=== PATIENT | male | born 1985 | race Caucasian/White ===

== ENCOUNTER → 2020-07-10 10:31 | Outpatient (CLI) | payer BC, SELFPAY ==
--- NOTE | ~2020-07-10 | XR_ITS ---
XR chest 2V DATE: 07/10/2020 10:48 INDICATION: Ex-two pack per day smoker TECHNIQUE: PA and lateral views COMPARISON: None FINDINGS: Normal heart size. No hilar or mediastinal enlargement. No pulmonary infiltrate or consolidation, pleural effusion or pulmonary vascular congestion or pneumo thorax. IMPRESSION: No active cardiopulmonary disease Reviewed, dictated and finalized at location A.
== END ==
PROVIDERS: PCP Family Medicine; Visit Provider Family Medicine
DX: F17.200 Nicotine dependence, unspecified, uncomplicated (principal)
CPT/HCPCS: 71046

== ENCOUNTER 2020-09-18 14:51 | Outpatient (CLI) | payer BC, SELFPAY ==
[2020-09-18 17:06] LABS: Add Urine Microscopic? YES; Appearance Urine Clear (Clear); Bacteria Urine Trace /hpf; Bilirubin Urine Negative (Negative); Blood Urine Negative (Negative); Calcium Oxalate Crystals Urine Present /hpf; Color Urine Yellow (Yellow); Glucose Urine UA Negative (Negative); Ketones Urine Negative (Negative); Leukocyte Esterase Ur Negative LEU/UL (Negative); Mucus Urine Rare /lpf; Nitrate Urine Negative (Negative); Protein Urine Negative (Negative); RBC Urine 0-2 /hpf (0-2); Specific Grav Ur 1.026 (1.001-1.035); Squamous Epithelial Cell Urine Occasional /hpf (Few); WBC Urine 0-3 /hpf
[2020-09-18 17:24] LABS: Vitamin D 25 Hydroxy 40.2 ng/mL
[2020-09-18 17:52] LABS: Prostate Specific Antigen 1.6 ng/mL (< OR = 4.0)
[2020-09-18 20:54] LABS: Folic Acid 8.8 ng/mL (2.76->20)
[2020-09-21 02:41] LABS: Sex Hormone Binding Globulin 30 nmol/L (10-50)
[2020-09-22 11:19] LABS: T3 Reverse 8 ng/dL (8-25)
[2020-09-23 13:46] LABS: Triiodothyronine T3 Free 3.4 pg/mL (2.3-4.2)
== END 2020-09-18 14:52 | disposition home or self-care (01) ==
LOC: ANHBWCLAB 14:56
PROVIDERS: PCP Family Medicine; Visit Provider Family Medicine
DX: E03.9 Hypothyroidism, unspecified (principal); E29.1 Testicular hypofunction; E66.9 Obesity, unspecified; F17.200 Nicotine dependence, unspecified, uncomplicated; Z79.899 Other long term (current) drug therapy; Z82.62 Family history of osteoporosis; I10 Essential (primary) hypertension
CPT/HCPCS: 36415; 81001; 82306; 82607; 82746; 84153; 84270; 84443; 84481; 84482; 86769; G0103

== ENCOUNTER 2021-04-22 09:56 | Outpatient (CLI) | payer BC, SELFPAY ==
[2021-04-22 19:37] LABS: Add Urine Microscopic? NO; Appearance Urine Clear (Clear); Bilirubin Urine Negative (Negative); Blood Urine Negative (Negative); Color Urine Yellow (Yellow); Glucose Urine UA Negative (Negative); Ketones Urine Negative (Negative); Leukocyte Esterase Ur Negative LEU/UL (NEGATIVE); Nitrate Urine Negative (Negative); Protein Urine Negative (Negative); Specific Grav Ur 1.017 (1.001-1.035); Urobilinogen Urine Negative mg/dL (<2.0)
== END 2021-04-22 09:57 | disposition home or self-care (01) ==
LOC: ANHBWCLAB 09:58
PROVIDERS: PCP Family Medicine; Visit Provider Family Medicine
DX: M54.9 Dorsalgia, unspecified (principal)
CPT/HCPCS: 81003

== ENCOUNTER 2022-10-13 09:49 | Outpatient (CLI) | payer BC, SELFPAY ==
[2022-10-13 18:14] LABS: Alanine Aminotransferase 46 U/L (6-50); Albumin Level 4.2 g/dL (3.5-5.1); Alkaline Phosphatase 73 U/L (38-126); Anion Gap 7 mmol/L (8-16); Aspartate Amino Transferase 52 U/L (17-59); Bilirubin,Total 1.8 mg/dL (0.2-1.3); Blood Urea Nitrogen 7 mg/dL (9-20); Calcium 8.6 mg/dL (8.4-10.2); Carbon Dioxide 27 mmol/L (22-30); Chloride 102 mmol/L (98-107); Cholesterol 93 mg/dL (0-200); Estimated Glomerular Filt Rate > 60; Glucose 79 mg/dL (65-110); HDL Direct 26 mg/dL; Potassium 3.3 mmol/L (3.4-5.0); Sodium 136 mmol/L (137-145); Triglycerides 126 mg/dL (<150)
[2022-10-13 18:25] LABS: LDL Cholesterol Direct 44 mg/dL
[2022-10-13 19:06] LABS: Basophils Absolute Auto 0.1 K/mm3 (0.0-0.1); Eosinophils Absolute Auto 0.2 K/mm3 (0-0.3); Eosinophils Percent Auto 2.4 % (0-4.4); Hematocrit 33.8 % (42.0-52.0); Hemoglobin 11.6 g/dL (14.0-18.0); Immature Granulocyte Absolute 0.24 K/mm3 (0.00-0.031); Immature Granulocyte Percent A 3.1 % (0-0.5); Lymphocytes Absolute Auto 2.14 K/mm3 (0.9-3.2); Lymphocytes Percent Auto 27.3 % (18.3-44.2); Mean Corpuscular HGB Conc 34.3 g/dl (32-36); Mean Corpuscular Hemoglobin 30.5 pg (26-34); Mean Corpuscular Volume 88.9 fl (80-100); Mean Platelet Volume 8.5 fl (7.4-10.4); Monocytes Absolute Auto 0.4 K/mm3 (0.1-0.6); Monocytes Percent Auto 4.7 % (2.6-8.5); Neutrophils Absolute Auto 4.8 K/mm3 (1.3-6.7); Neutrophils Percent Auto 61.5 % (45.5-73.1); Nucleated Red Blood Cells Perc 0.4 % (0.0-0.2); Platelet Count Result 237 k/mm3 (150-375); Red Cell Distribution Width 20.9 % (11.5-14.5); White Blood Count 7.9 K/mm3 (4.5-10.0)
== END 2022-10-13 09:50 | disposition home or self-care (01) ==
PROVIDERS: PCP Family Medicine; Visit Provider Family Medicine
DX: N46.9 Male infertility, unspecified (principal); M54.9 Dorsalgia, unspecified; R68.82 Decreased libido; E03.9 Hypothyroidism, unspecified; E66.9 Obesity, unspecified; F17.200 Nicotine dependence, unspecified, uncomplicated; Z68.43 Body mass index [BMI] 50.0-59.9, adult
CPT/HCPCS: 36415; 80053; 80061; 83036; 84443; 85025

== ENCOUNTER 2022-11-24 10:37 | Outpatient (CLI) | payer BC, SELFPAY ==
[2022-11-24 18:58] LABS: Anion Gap 4 mmol/L (8-16); Blood Urea Nitrogen 10 mg/dL (9-20); Calcium 8.8 mg/dL (8.4-10.2); Carbon Dioxide 28 mmol/L (22-30); Chloride 105 mmol/L (98-107); Estimated Glomerular Filt Rate > 60; Glucose 83 mg/dL (65-110); Iron 99 ug/dL (49-181); Potassium 3.7 mmol/L (3.4-5.0); Sodium 137 mmol/L (137-145)
[2022-11-24 19:05] LABS: Basophils Absolute Auto 0.1 K/mm3 (0.0-0.1); Basophils Percent Auto 1.2 % (0.2-1.2); Eosinophils Absolute Auto 0.2 K/mm3 (0-0.3); Eosinophils Percent Auto 2.6 % (0-4.4); Hematocrit 38.7 % (42.0-52.0); Hemoglobin 13.3 g/dL (14.0-18.0); Immature Granulocyte Absolute 0.09 K/mm3 (0.00-0.031); Immature Granulocyte Percent A 1.3 % (0-0.5); Lymphocytes Absolute Auto 1.72 K/mm3 (0.9-3.2); Lymphocytes Percent Auto 25.1 % (18.3-44.2); Mean Corpuscular HGB Conc 34.4 g/dl (32-36); Mean Corpuscular Hemoglobin 31.4 pg (26-34); Mean Corpuscular Volume 91.5 fl (80-100); Mean Platelet Volume 8.6 fl (7.4-10.4); Monocytes Absolute Auto 0.5 K/mm3 (0.1-0.6); Monocytes Percent Auto 6.7 % (2.6-8.5); Neutrophils Absolute Auto 4.3 K/mm3 (1.3-6.7); Neutrophils Percent Auto 63.1 % (45.5-73.1); Platelet Count Result 231 k/mm3 (150-375); Red Blood Count 4.23 M/mm3 (4.6-6.20); Red Cell Distribution Width 20.7 % (11.5-14.5); White Blood Count 6.9 K/mm3 (4.5-10.0)
[2022-11-24 19:12] LABS: Percent Iron Saturation 31 % (20-50)
[2022-11-24 19:18] LABS: Hemoglobin A1C < 4.0 % (<5.7)
== END 2022-11-24 10:38 | disposition home or self-care (01) ==
PROVIDERS: PCP Family Medicine; Visit Provider Family Medicine
DX: D64.9 Anemia, unspecified (principal); E87.6 Hypokalemia; E03.9 Hypothyroidism, unspecified; E66.9 Obesity, unspecified
CPT/HCPCS: 36415; 80048; 83036; 83540; 83550; 85025

== ENCOUNTER 2023-09-29 14:51 | Outpatient (CLI) | payer BC, SELFPAY | END 2023-09-29 14:52 | disposition home or self-care (01) | LOC: ANHBWCLAB 14:53 | PROVIDERS: PCP Nurse Practitioner Adult Health; Visit Provider Nurse Practitioner Adult Health | DX: E03.9 Hypothyroidism, unspecified (principal) | CPT/HCPCS: 36415; 84443 ==

== ENCOUNTER 2024-09-11 09:00 | Outpatient (CLI) | payer BC, SELFPAY ==
[2024-09-11 20:39] LABS: Alanine Aminotransferase 47 U/L (6-50); Albumin Level 4.4 g/dL (3.5-5.1); Alkaline Phosphatase 66 U/L (38-126); Anion Gap 8 mmol/L (4-12); Aspartate Amino Transferase 50 U/L (17-59); Blood Urea Nitrogen 13 mg/dL (9-20); Calcium 9.1 mg/dL (8.4-10.2); Carbon Dioxide 28 mmol/L (22-30); Chloride 103 mmol/L (98-107); Estimated Glomerular Filt Rate > 60; Glucose 94 mg/dL (65-110); Hematocrit 36.1 % (42.0-52.0); Hemoglobin 12.1 g/dL (14.0-18.0); Mean Corpuscular HGB Conc 33.5 g/dl (32-36); Mean Corpuscular Hemoglobin 30.9 pg (26-34); Mean Corpuscular Volume 92.3 fl (80-100); Mean Platelet Volume 8.7 fl (7.4-10.4); Platelet Count Result 237 k/mm3 (150-375); Potassium 4.2 mmol/L (3.4-5.0); Red Blood Count 3.91 M/mm3 (4.6-6.20); Red Cell Distribution Width 20.5 % (11.5-14.5); Sodium 139 mmol/L (137-145); White Blood Count 8.2 K/mm3 (4.5-10.0)
== END 2024-09-11 09:01 | disposition home or self-care (01) ==
PROVIDERS: PCP Nurse Practitioner Adult Health; Visit Provider Nurse Practitioner Adult Health
DX: E53.8 Deficiency of other specified B group vitamins (principal); E03.9 Hypothyroidism, unspecified; D64.9 Anemia, unspecified
CPT/HCPCS: 36415; 80053; 82607; 84443; 85027

== ENCOUNTER 2024-09-18 09:47 | Outpatient (CLI) | payer BC, SELFPAY ==
[2024-09-18 20:59] LABS: Iron 75 ug/dL (49-181)
[2024-09-18 21:08] LABS: Percent Iron Saturation 24 % (20-50)
== END 2024-09-18 09:48 | disposition home or self-care (01) ==
LOC: ANHBWCLAB 09:49
PROVIDERS: PCP Nurse Practitioner Adult Health; Visit Provider Nurse Practitioner Adult Health
DX: D64.9 Anemia, unspecified (principal); E03.9 Hypothyroidism, unspecified
CPT/HCPCS: 36415; 82728; 83540; 83550

== ENCOUNTER 2024-11-09 17:00 | Outpatient (NON) | payer BC, SELFPAY ==
--- OUTSIDE RECORDS SUMMARY | 2024-11-10 09:50 | XMS_ITS | Clinical Summary ---
Author Organization [facility] Address [address] [place] [address] Care Team Providers Care Centrifugal Chiller Technician Name Role Phone Telma Sheth NP Primary Care Provider Allergies Active Allergy Reactions Criticality Noted Date Comments Azithromycin Hives Medium 04/01/2023 Medications amLODIPine-benaz epriL (LOTREL) 5-40 mg per capsule 03/04/2023 Active Clomid 50 mg tablet TAKE 1/2 TABLET BY MOUTH EVERY OTHER DAY 03/02/2023 Active Active Problems No known active problems Encounters Date Type Department Care Team Description 09/07/2024 8:46 PM COMPRESSOR ENGINEER - 09/07/2024 11:19 PM COMPRESSOR ENGINEER [facility] Emergency Department [address] [place] [address] April Bob MD Lightheadedness (Primary Dx) Discharge Disposition: Discharge to home or self care from Last 3 Months Social History Tobacco Use Types Packs/Day Years Used Date Smoking Tobacco: Former Cigarettes 1.5 20.1 S tarted: 2005 Smokeless Tobacco: Never Tobacco Cessation:Counseling Given: Yes Personal Safety Answer Date Recorded Have you ever been in or are you currently in a harmful physical or emotional relationship or is someone making you feel afraid or unsafe? Denies 09/07/2024 Sex and Gender Information Value Date Recorded Sex Assigned at Not on file Legal Sex Male 5:33 AM COMPRESSOR ENGINEER Gender Identity Not on file Sexual Orientation Not on file Obstetrics History Last Filed Vital Signs Vital Sign Reading Time Taken Comments Blood Pressure 135/58 09/07/2024 10:59 PM COMPRESSOR ENGINEER Pulse 81 09/07/2024 10:59 PM COMPRESSOR ENGINEER Temperature 37.3 C (99.2 F) 09/07/2024 6:42 PM COMPRESSOR ENGINEER Respiratory Rate 13 09/07/2024 10:59 PM COMPRESSOR ENGINEER Oxygen Saturation 99% 09/07/2024 10:59 PM COMPRESSOR ENGINEER Inhaled Oxygen Concentration - - Weight 170.1 kg (375 lb) 01/30/2024 8:34 AM CDT Height 177.8 cm (5' 10 ) 01/30/2024 8:34 AM CDT Body Mass Index 53.81 01/30/2024 8:34 AM CDT Plan of Treatment Health Maintenance Due Date Last Done Comments Depression Screening 1986 Hepatitis C Screening 1986 Varicella Vaccines (1 of 2 - 13+ 2-dose series) 1999 Hepatitis B Screening 2004 Regular Well Visit/Exam 18-64 2004 Covid-19 Vaccine (3 - 2023-2 5 season) 2024 06/17/2021, 05/20/2021 Influenza Vaccine (#1) 2024 DTaP/Tdap/Td Vaccine (3 - Td or Tdap) 01/30/2032 01/29/2022, 08/27/2013 HPV Vaccines Aged Out No longer eligi ble based on patient's age to complete this topic Pneumococcal vaccine <65 Aged Out No longer eligible based on patient's age to complete this topic Procedures Procedure Name Priority Date/Time Associated Diagnosis Comments EGFR STAT 09/07/2024 8:57 PM COMPRESSOR ENGINEER DIFFERENTIAL AUTO STAT 09/07/2024 8:5 7 PM COMPRESSOR ENGINEER COMPREHENSIVE METABOLIC PANEL STAT 09/07/2024 8:57 PM COMPRESSOR ENGINEER CBC WITH AUTO DIFFERENTIAL STAT 09/07/2024 8:57 PM COMPRESSOR ENGINEER ECG 12-LEAD STAT 09/07/2024 6:52 PM COMPRESSOR ENGINEER from Last 3 Months Results * eGFR (09/07/2024 8:57 PM COMPRESSOR ENGINEER) eGFR >90 >=60 mL/min/1. 73 m2 Comment: Interpretive Data Reference Interval Normal >/= 90 mL/min/1.73m2 Mildly decreased* 60 - 89 mL/min/1.73m2 Mildly to moderately decreased 45 - 59 mL/min/1.73m2 Moderately to severely decreased 30 - 44 mL/min/1.73m2 Severely decreased 15 - 29 mL/min/1.73m2 Kidney Failure < 15 mL/min/1.73m2 *Relative to young adult level Estimated glomerular filtration rate is determined by the 2020 CKD-EPI equation recommended by the National Kidney Foundation (A Unifying Approach to GFR Estimation: Recommendations of the NKF-ASK Task Force on Reassessing the Inclusion of Race in Diagnosing Kidney Disease, JASN 2020). The CKD-EPI equation should not be used for patients with unstable renal function and has not been validated in children and those over 70. Current interpretive data was last reviewed 2021. Blood 09/07/2024 8:57 PM COMPRESSOR ENGINEER 09/07/2024 9:00 PM COMPRESSOR ENGINEER Hermann Ascencio MD LAB BLOOD ORDERABLES Final Re sult [facility] ([place]) 1 [facility] Department of Laboratories [place], [place] [id number] * Differential, auto (09/07/2024 8:57 PM COMPRESSOR ENGINEER) Neutrophil abs 5.8 1.5 - 6.5 K/cumm Imm gran abs 0.1 0.0 - 0.1 K/cumm [facility] ([place]) Lymphocyte abs 2.2 0.8 - 3.3 K/cumm [facility] ([place]) Monocyte abs 0.4 0.2 - 0.8 K/cumm [facility] ([place]) Eosinophil abs 0.1 0.0 - 0.5 K/cumm [facility] ([place]) Basophil abs 0.1 0.0 - 0.1 K/cumm [facility] ([place]) Neutrophil pct 67.0 % [facility] ([place]) Comment: Interpretive Data Percent cell count reference ranges are not reported, since discordance with absolute values may lead to misinterpretation of CBC data. Current Interpretive Data was last revised on 2018. Imm gran pct 0.8 % [facility] ([place]) Comment: Interpretive Data Percent cell count reference ranges are not reported, since discordance with absolute values may lead to misinterpretation of CBC data. Current Interpretive Data was last revised on 2018. Lymphocyte pct 25.6 % [facility] ([place]) Comment: Interpretive Data Percent cell count reference ranges are not reported, since discordance with absolute values may lead to misinterpretation of CBC data. Current Interpretive Data was last revised on 2018. Monocyte pct 4.5 % [facility] ([place]) Comment: Interpretive Data Percent cell count reference ranges are not reported, since discordance with absolute values may lead to misinterpretation of CBC data. Current Interpretive Data was last revised on 2018. Eosinophil pct 1.4 % [facility] ([place]) Comment: Interpretive Data Percent cell count reference ranges are not reported, since discordance with absolute values may lead to misinterpretation of CBC data. Current Interpretive Data was last revised on 2018. Basophil pct 0.7 % [facility] ([place]) Comment: Interpretive Data Percent cell count reference ranges are not reported, since discordance with absolute values may lead to misinterpretation of CBC data. Current Interpretive Data was last revised on 2018. Blood 09/07/2024 8:57 PM COMPRESSOR ENGINEER 09/07/2024 9:00 PM COMPRESSOR ENGINEER us Hermann Ascencio MD LAB BLOOD ORDERABLES Final Re sult [facility] ([place]) 1 [facility] Department [place] [address] * (ABNORMAL) CBC with auto differential (09/07/2024 8:57 PM COMPRESSOR ENGINEER) WBC 8.6 3.8 - 9.9 K/cumm Hgb 12.3(L) 13.0 - 17.5 g/dL [facility] ([place]) Hct 33.9(L) 38.9 - 50.3 % [facility] ([place]) Plt 229 150 - 400 K/cumm [facility] ([place]) MPV 8.2(L) 9.1 - 12.3 fL [facility] ([place]) RBC 4.01(L) 4.30 - 5.80 M/cumm [facility] ([place]) MCV 84.5 81.3 - 96.4 fL [facility] ([place]) MCH 30.7 27.1 - 33.3 pg [facility] ([place]) MCHC 36.3(H) 32.3 - 35.7 g/dL [facility] ([place]) RDW CV 18.8(H) 11.1 - 14.9 % [facility] ([place]) RDW SD 57.6(H) 35.7 - 48.1 fL [facility] ([place]) NRBC abs 0.00 0.00 - 0.01 K/cumm [facility] ([place]) Blood 09/07/2024 8:57 PM COMPRESSOR ENGINEER 09/07/2024 9:00 PM COMPRESSOR ENGINEER us April Bob MD LAB BLOOD ORDERABLES Final Resul t [facility] 1 [facility] Department of Laboratories [place], [place] [id number] * (ABNORMAL) Comprehensive metabolic panel (09/07/2024 8:57 PM COMPRESSOR ENGINEER) Sodium 138 135 - 145 mmol/L Potassium, pl 4.0 3.3 - 4.9 mmol/L [facility] ([place]) Chloride 103 97 - 110 mmol/L [facility]) CO2 25 22 - 32 mmol/L [facility] ([place]) Anion gap 11 2 - 15 mmol/L [facility] ([place]) BUN 9 6 - 25 mg/dL [facility] ([place]) Creatinine 0.85 0.80 - 1.30 mg/dL [facility] ([place]) Comment:Icteric sample, test results may be affected. Glucose 97 70 - 199 mg/dL [facility] ([place]) Comment: Interpretive Data Fasting glucose >/= 126 mg/dl is diagnostic for diabetes. Fasting is defined as no caloric intake for at least 8 hours. Fasting glucose between 100 mg/dl to 125 mg/dl is diagnostic of prediabetes. In a patient with classic symptoms of hyperglycemia or hyperglycemic crisis, a random glucose >/= 200 mg/dl is diagnostic for diabetes. In the absence of unequivocal hyperglycemia, results should be confirmed by repeat testing. The classification and Diagnosis of Diabetes Diabetes Care 2021; 46: S19-S40. Current interpretive data was last revised 2022. Calcium 9.6 8.5 - 10.3 mg/dL [facility] ([place]) Bilirubin, total 1.6(H) 0.1 - 1.2 mg/dL [facility] ([place]) Protein, pl 7.7 6.5 - 8.5 g/dL [facility] ([place]) Albumin 4.4 3.5 - 5.0 g/dL [facility] ([place]) Alk phos 70 40 - 130 Units/L [facility] ([place]) ALT 46 7 - 55 Units/L [facility] ([place]) AST 24 10 - 50 Units/L [facility] ([place]) Blood 09/07/2024 8:57 PM COMPRESSOR ENGINEER 09/07/2024 9:00 PM COMPRESSOR ENGINEER us April Bob MD LAB BLOOD ORDERABLES Final Resul t Performing Organization Address City/[facility] Co de Phone Number [facility] ([place]) 1 [facility] Department [place] [address] * ECG 12 lead (09/07/2024 6:52 PM COMPRESSOR ENGINEER) 09/07/2024 6:52 PM COMPRESSOR ENGINEER Narrative [facility] - 09/08/2024 10:30 AM COMPRESSOR ENGINEER Vent Rate: 86 bpm RR Interval: 696 msec ND Interval: 156 msec QRS Duration: 94 msec QT Interval: 352 msec QTC Interval: 395 msec P-R-T [place]: 38 - 36 - 38 degrees IMPRESSION: SINUS RHYTHM NORMAL ECG NO CHANGE FROM PREVIOUS TRACING NOTED Electronically Signed By: Dominguez Quiles MD us April Bob MD ECG ORDERABLES Final Result Performing Organization Address [facility] Co de Phone Number [facility] [employer] [facility] from Last 3 Months Insurance [facility] ACCESS CHOICE Care Teams Centrifugal Chiller Technician Relationship Specialty Start Date End Date Telma Sheth NP [address] [place] [id number] PCP - General Nurse Practitioner 01/30/24
--- OUTSIDE RECORDS SUMMARY | 2024-11-10 09:50 | XMS_ITS | Referral Summary ---
Author Organization [facility] Address [address] [place] [address] Care Team Providers Care Paediatric Surgeon Name Role Phone Domenic Telma MARCANO Primary Care Provider [phone] Encounters Date Type Department Care Team Description 09/07/2024 8:[address] BAILIFF OR SHERIFF - 09/07/2024 11:[address] [place]IFF [place] SHER[place] Emergency [facility] Emergency Department 1 [place] [address] April Bob MD Lightheadedness (Primary Dx) Discharge Disposition: Discharge to home or self care from Last 3 Months Allergies Active Allergy Reactions Criticality Noted Date Comments Azithromycin Hives Medium 04/01/2023 Medications amLODIPine-benaz epriL (LOTREL) 5-40 mg per capsule 03/04/2023 Active Clomid 50 mg tablet TAKE 1/2 TABLET BY MOUTH EVERY OTHER DAY 03/02/2023 Active Active Problems No known active problems Social History Tobacco Use Types Packs/Day Years Used Date Smoking Tobacco: Former Cigarettes 1.5 20.1 S tarted: 2004 Smokeless Tobacco: Never Tobacco Cessation:Counseling Given: Yes Personal Safety Answer Date Recorded Have you ever been in or are you currently in a harmful physical or emotional relationship or is someone making you feel afraid or unsafe? Denies 09/07/2024 Sex and Gender Information Value Date Recorded Sex Assigned at Not on file Legal Sex Male 5:[address] BAILIFF OR SHERIFF Gender Identity Not on file Sexual Orientation Not on file Last Filed Vital Signs Vital Sign Reading Time Taken Comments Blood Pressure 135/58 09/07/2024 10:[address] BAILIFF OR SHERIFF Pulse 81 09/07/2024 10:[address] BAILIFF OR SHERIFF Temperature 37.3 C (99.2 F) 09/07/2024 6:[address] BAILIFF OR SHERIFF Respiratory Rate 13 09/07/2024 10:[address] BAILIFF OR SHERIFF Oxygen Saturation 99% 09/07/2024 10:[address] BAILIFF OR SHERIFF Inhaled Oxygen Concentration - - Weight 170.1 kg (375 lb) 01/30/2024 8:34 AM CDT Height 177.8 cm (5' 10 ) 01/30/2024 8:34 AM CDT Body Mass Index 53.81 01/30/2024 8:34 AM CDT Plan of Treatment Not on file Procedures Procedure Name Priority Date/Time Associated Diagnosis Comments EGFR STAT 09/07/2024 8:[address] BAILIFF OR SHERIFF DIFFERENTIAL AUTO STAT 09/07/2024 8:[address] BAILIFF OR SHERIFF COMPREHENSIVE METABOLIC PANEL STAT 09/07/2024 8:[address] BAILIFF OR SHERIFF CBC WITH AUTO DIFFERENTIAL STAT 09/07/2024 8:[address] BAILIFF OR SHERIFF ECG 12-LEAD STAT 09/07/2024 6:[address] BAILIFF OR SHERIFF from Last 3 Months Results * eGFR (09/07/2024 8:[address] BAILIFF OR SHERIFF) eGFR >90 >=60 mL/min/1. 73 m2 Comment: [...] last reviewed 2021. Blood 09/07/2024 8:[address] BAILIFF OR SHERIFF 09/07/2024 9:[address] BAILIFF OR SHERIFF us Hermann Ascencio MD LAB BLOOD ORDERABLES Final Re sult [facility] ([place]) 1 [facility] Department [place] [address] * Differential, auto (09/07/2024 8:[address] BAILIFF OR SHERIFF) Neutrophil abs 5.8 1.5 - 6.5 K/cumm [...] Neutrophil pct 67.0 % [facility] ([place]) Comment: Interpretive [...] revised on 2018. Blood 09/07/2024 8:[address] BAILIFF OR SHERIFF 09/07/2024 9:[address] BAILIFF OR SHERIFF us Hermann Ascencio MD LAB BLOOD ORDERABLES Final Re sult [facility] ([place]) 1 [facility] Department [place] [address] * (ABNORMAL) CBC with auto differential (09/07/2024 8:[address] BAILIFF OR SHERIFF) WBC 8.6 3.8 - 9.9 K/cumm Hgb 12.3(L) 13.0 - 17.5 g/dL [facility] ([place]) Hct 33.9(L) 38.9 - 50.3 % [facility] ([place]) Plt 229 150 - 400 [...] [facility] ([place]) Blood 09/07/2024 8:[address] BAILIFF OR SHERIFF 09/07/2024 9:[address] BAILIFF OR SHERIFF us April Bob MD LAB BLOOD ORDERABLES Final Resul t [facility] ([place]) 1 [facility] Department [place] [address] * (ABNORMAL) Comprehensive metabolic panel (09/07/2024 8:[address] BAILIFF OR SHERIFF) Sodium 138 135 - 145 mmol/L Potassium, pl 4.0 3.3 - 4.9 mmol/L [facility] ([place]) Chloride 103 97 - 110 mmol/L [facility] ([place]) CO2 25 22 - 32 mmol/L [facility] ([place]) Anion gap 11 2 - 15 mmol/L [facility] ([place]) BUN 9 6 - 25 mg/dL [facility] ([place]) Creatinine 0.85 0.80 - 1.30 mg/dL [facility] ([place]) Comment:Icteric sample, test results may be affected. Glucose 97 70 - 199 mg/dL [facility] ([place] Comment: Interpretive Data Fasting glucose [...] classification and Diagnosis of Diabetes Diabetes Care 202; 46: S19-S40. Current interpretive data was last [...] [facility] ([place]) Blood 09/07/2024 8:[address] BAILIFF OR SHERIFF 09/07/2024 9:[address] BAILIFF OR SHERIFF us April Bob MD LAB BLOOD ORDERABLES Final Resul t [facility] ([place]) 1 [facility] Department [place] [address] * ECG 12 lead (09/07/2024 6:[address] BAILIFF OR SHERIFF) 09/07/2024 6:[address] BAILIFF OR SHERIFF Narrative [facility] - 09/08/2024 10:[address] BAILIFF OR SHERIFF Vent Rate: 86 bpm RR Interval: 696 msec [place] Interval: 156 msec QRS Duration: 94 msec QT Interval: 352 msec QTC Interval: 395 msec P-R-T [place]: 38 - 36 - 38 degrees IMPRESSION: SINUS RHYTHM NORMAL ECG NO CHANGE FROM PREVIOUS TRACING NOTED Electronically Signed By: Dominguez Quiles MD us April Bob MD ECG ORDERABLES Final Result Performing Organization Address City/State/[facility] Co de Phone Number [facility] from Last 3 Months Insurance [facility] ACCESS CHOICE Care Teams Paediatric Surgeon Relationship Specialty Start Date End Date Telma Sheth NP [address] [place] [address] PCP - General Nurse Practitioner 01/30/24
[2024-11-10 11:18] LABS: IFOB Positive Control Positive; Immunochemical Fecal Occult Bl Negative (N)
== END 2024-11-09 17:01 | disposition home or self-care (01) ==
LOC: ANHLAB 11-10 09:47
PROVIDERS: PCP Nurse Practitioner Adult Health; Visit Provider Nurse Practitioner Adult Health
DX: D64.9 Anemia, unspecified (principal)
CPT/HCPCS: 82274